=== PATIENT | male | born 1980 | race Caucasian/White ===

== ENCOUNTER 2019-02-27 12:03 | Emergency (ER) | payer SELFPAY ==
[2019-02-27 12:15] VITALS: BP 131/81
[2019-02-27] MEDS ORDERED: PERCT10 PO (12:20)
[2019-02-27] MEDS ORDERED: SODIUM CHLORIDE 0.9% 1,000 ML IV ONE (12:20)
== END 2019-02-27 12:40 | disposition left against medical advice (07) ==
LOC: EMS 12:04
DX: R10.9 Unspecified abdominal pain (principal); F60.9 Personality disorder, unspecified; F12.90 Cannabis use, unspecified, uncomplicated
CPT/HCPCS: J7030